=== PATIENT | male | born 1965 | race Caucasian/White ===

== ENCOUNTER 2016-08-05 03:05 | Inpatient (IN) | payer SELFPAY ==
[2016-08-05] VITALS (13 sets, daily range): BP systolic 122–169; BP diastolic 65–100
[~2016-08-05] VITALS: Ht 182.9 cm; Wt 96.6 kg
--- NOTE | ~2016-08-05 | CON ---
[place], [place] REPORT OF CONSULTATION NAME: EUGENIA POWER JR [facility] #: [id number] UNIT #: [id number] ROOM: [facility] DOCTOR: NASRA KOEHLER MD BIRTHDATE: [birth year] DOS: 08/05/2016 CARDIOLOGY CONSULTATION REASON FOR CONSULTATION: Chest pain and elevated cardiac enzymes. HISTORY OF PRESENT ILLNESS: The patient is a 50-year-old gentleman with history of hypertension and dyslipidemia, came to the Emergency Room with chest pain at work. He described this as an aching pain towards the left side of the chest that radiated to his left axillary area as well as it radiated down his left arm. 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 He did have some associated numbness in the left hand, but no shortness of breath or diaphoresis. He did have some nausea. He had a similar episode about a month ago, but did not seek any medical attention since the pain resolved after a couple of hours. Denied any palpitations, dizziness or syncope. No vomiting or diarrhea, no fever or chills, no cough, no hemoptysis. He did take 4 baby aspirins without much relief. His pain gradually eased up in the Emergency Room. He did have a history of hypertension and dyslipidemia and takes medications and does smoke cigarettes. REVIEW OF SYSTEMS: Review of the 10 systems negative except as mentioned above, especially no neurologic, visual or musculoskeletal symptoms. Other than the nausea with chest pain, no GI, hematologic or endocrine symptoms. PAST MEDICAL HISTORY: 1. Hypertension. 2. Overweight. 3. Dyslipidemia. PAST SURGICAL HISTORY: No significant past surgical history. SOCIAL HISTORY: The patient does smoke cigarettes, drinks occasional alcohol. No illicit drug abuse. FAMILY HISTORY: Father at the age of 45 from myocardial infarction. Mother is living and has history of diabetes. ALLERGIES: No known drug allergies. HOME MEDICATIONS: Reviewed. PHYSICAL EXAMINATION: VITAL SIGNS: Blood pressure 146/80, pulse 68, respiratory rate 16. GENERAL: Alert, comfortable, in no acute distress. HEENT: Pupils are round and equal. No jaundice. Tongue was moist and pharynx was clear. NECK: Supple. No distended neck veins, no carotid bruit. Thyroid not palpable. CHEST: Symmetrical, nontender. [place], [place] REPORT OF CONSULTATION [facility] [id number] UNIT #: [id number] ROOM: 501 DOCTOR: ZAKIA MARKS,NASRA BIRTHDATE: [birth year] LUNGS: Clear to auscultation bilaterally. HEART: Regular rhythm. No S3. ABDOMEN: Benign, nontender, bowel sounds normal. No pulsatile mass. EXTREMITIES: Showed no edema. Distal pulses are palpable. SKIN: Warm and dry. No cyanosis, no clubbing. NEUROLOGIC: The patient is alert and oriented. No focal neurologic deficit. MUSCULOSKELETAL: No joint tenderness or swelling. RECTAL: Deferred. GENITOURINARY: Deferred. REVIEW OF DIAGNOSTIC TESTS: EKG shows sinus rhythm, no acute ST-T changes. CBC, chemistry and cardiac enzymes reviewed. The troponin was elevated with gradually rising up. His creatinine was 0.8 and potassium 4.1. Hemoglobin 15.8. IMPRESSION: 1. Non-ST elevation myocardial infarction. 2. Hypertension. 3. Tobacco use. 4. History of dyslipidemia. 5. Overweight. RECOMMENDATIONS: 1. He denies any chest pain. Vital signs stable. EKG showed no significant ischemic changes. 2. Due to his chest pain, NSTEMI and CAD risk factors, I would recommend cardiac catheterization. Risks and complications of cardiac catheterization discussed and all questions answered. The patient and his , who is at the bedside, agreeable to proceed with cardiac catheterization, angioplasty and stent and also bypass surgery if needed. 3. Cardiac catheterization scheduled for Sunday at [facility]. 4. Continue aspirin, beta blockers and statins as well as weight-based Lovenox. 5. His cardiac catheterization indication is 3 with AUC score 8. 6. We would consider 2D echo in [place] since this cannot be done during the weekend at [facility]. 7. Other recommendations based on his cardiac catheterization findings. 8. Follow up with [facility] after discharge. NASRA KOEHLER MD CM:CONSTR:REPORT OF CONSULTATION 0817 08/07/16 1825 interface
--- NOTE | ~2016-08-05 | PR ---
[place], [place] PROGRESS NOTE NAME: EUGENIA POWER JR UNIT #: [id number] ROOM: [facility] DOCTOR: NASRA KOEHLER MD BIRTHDATE: [birth year] DOS: 08/06/2016 REASON FOR VISIT: Non-ST elevation myocardial infarction. SUBJECTIVE: The patient is ambulating in the hallway. Denies any chest pain or shortness of breath. He really wanted to go home. No palpitation, no dizziness. REVIEW OF SYSTEMS: Review of the 8 systems negative except as mentioned above. RHYTHM STRIPS: The patient in sinus rhythm. PHYSICAL EXAMINATION: VITAL SIGNS: Reviewed. GENERAL: The patient is alert, in no acute distress, somewhat agitated. He wanted to go home. HEENT: Pupils are round and equal. NECK: Supple. No distended neck veins. No carotid bruit. CHEST: Nontender. LUNGS: Clear to auscultation bilaterally. HEART: Regular rhythm, no S3. ABDOMEN: Bowel sounds normal. EXTREMITIES: Showed no edema. Distal pulses are palpable. NEUROLOGIC: The patient is alert, oriented. No focal neurologic deficit. RECTAL: Deferred. Medications and labs reviewed as available. IMPRESSION: 1. Non-ST elevation myocardial infarction. 2. Hypertension. 3. Tobacco use. 4. History of dyslipidemia. RECOMMENDATIONS: 1. Continue current medications. 2. He was on aspirin, beta blockers, statins and the Lovenox. 3. He is scheduled for cardiac catheterization tomorrow, Sunday at [facility] and further recommendations based on his cardiac catheterization. 4. The patient is strongly advised against going home today due to risk of recurrent myocardial infarction and subsequent complications. 5. Discussed with his family and all questions are answered. [place], [place] PROGRESS NOTE NAME: EUGENIA POWER JR UNIT #: [id number] ROOM: [facility] DOCTOR: NASRA KOEHLER MD BIRTHDATE: [birth year] NASRA KOEHLER MD CM:PNTRANS [id number] NASRA KOEHLER MD 08/07/16 1032 interface
--- NOTE | ~2016-08-05 | WRIGHTHP ---
[place], [place] PATIENT HISTORY AND PHYSICAL EXAM NAME: EUGENIA POWER JR [facility] #: [id number] UNIT #: [id number] ROOM: [facility] DOCTOR: LIS SILVA DO BIRTHDATE: [birth year] DOS: 08/05/2016 PRIMARY CARE PHYSICIAN: None. The patient was seen and evaluated with the resident on 08/05/2016. Please see the resident's note for further details. ASSESSMENT: 1. Acute non-ST elevation myocardial infarction. 2. Mild leukocytosis. 3. Small right lower lobe infiltrate seen on CTA of the chest. The patient has no signs of pneumonia including shortness of breath, cough, fever or significantly elevated white blood cell count 4. Hypertension. 5. Hyperlipidemia. 6. Diabetes mellitus type 2. 7. Tobacco abuse. 8. Noncompliance with medical management. He has been off medications for at least a year. PLAN: Lovenox has been started. Cardiology has been consulted. A beta reymundo and aspirin will be continued. A statin will be started. Continue to monitor cardiac enzymes. We will hold antibiotics for now because the patient has no other signs of pneumonia. LIS SILVA DO CM:HISPHYS:PATIENT HISTORY AND PHYSICAL EXAMINATION 1352 [id number] LIS SILVA DO 08/05/16 1539 interface
[~2016-08-05 03:05] MED LIST: AMOXICILLIN500 MG PO; DAYPRO600 M1 PO; HYDROCODONE BIT1 T11 PO; LOSARTAN POTASS1 TA6 PO; METFORMIN1000 MG PO; PHENERGAN25 M3 PO; PREDNISONE50 MG PO; VICODIN 500 MG-1 TAB PO
[2016-08-05 04:00] LABS: BASO # 0.1 10*3/uL (0.0-0.1); BASO % 1.2 % (0.0-1.0); EOS # 0.2 10*3/uL (0.0-0.4); EOS % 1.8 % (1.0-4.0); HEMATOCRIT 45.7 % (42.0-52.0); HEMOGLOBIN 15.8 g/dl (14.0-18.0); IG # 0.1 10*3/uL (0.0-0.1); LYMPH # 2.5 10*3/uL (1.3-4.4); LYMPH % 22.3 % (27.0-41.0); MEAN CELL VOLUME 88.4 fl (80.0-94.0); MEAN CORPUSCULAR HGB 30.6 pg (27.0-31.0); MEAN CORPUSCULAR HGB CONC 34.6 g/dl (33.0-37.0); MEAN PLATELET VOLUME 12.8 fl (9.6-12.3); MONO # 0.6 10*3/uL (0.1-1.0); MONO % 4.9 % (3.0-9.0); NEUT # 7.9 10*3/uL (2.3-7.9); NEUT % 69.2 % (47.0-73.0); PLATELET COUNT AUTOMATED 157 10*3/uL (130-400); RED BLOOD COUNT 5.17 10*6/uL (4.50-5.90); WHITE BLOOD COUNT 11.4 10*3/uL (4.8-10.8)
[2016-08-05 04:08] LABS: PROTHROMBIN TIME 10.9 SECONDS (9.0-12.4)
[2016-08-05 04:17] LABS: ALBUMIN 3.5 gm/dl (3.1-4.5); ALKALINE PHOSPHATASE 82 U/L (45-117); BILIRUBIN, TOTAL 0.4 mg/dl (0.2-1.0); BUN 11 mg/dl (7-24); CARBON DIOXIDE 21 mmol/L (21-32); CHLORIDE 108 mmol/L (98-107); EST GLOM FILT AFRICAN AMERICAN > 60 ml/min; GLUCOSE 197 mg/dL (65-99); MAGNESIUM 1.8 mg/dL (1.5-2.1); POTASSIUM 4.1 mmol/L (3.5-5.1); SGOT/AST 28 IU/L (3-35); SGPT/ALT 54 U/L (12-78); SODIUM 144 mmol/L (136-145); TOTAL PROTEIN 6.9 gm/dL (6.4-8.2)
[2016-08-05 04:19] LABS: TROPONIN I 0.103 ng/ml (<0.045)
[2016-08-05 05:19] LABS: BILIRUBIN NEGATIVE (NEGATIVE); BLOOD 3+ (NEGATIVE); CLARITY CLEAR (CLEAR); COLOR YELLOW (YELLOW); GLUCOSE NEGATIVE (NEGATIVE); KETONE NEGATIVE (NEGATIVE); LEUKO ESTERASE NEGATIVE (NEGATIVE); NITRITE NEGATIVE (NEGATIVE); PH 5.5 (5.0-9.0); PROTEIN 2+ (NEGATIVE); UROBILINOGEN 0.2 E.U./dl (0.2-1.0)
[2016-08-05 05:26] LABS: RBC 16-20 rbc/hpf (0-2); WBC 0-2 wbc/hpf (0-5)
[2016-08-05 05:27] LABS: URINE REFLEX COMMENT YES (NO)
[2016-08-05 05:29] LABS: URINE AMPHETAMINES < 1000 (1000ng/ml); URINE BARBITURATES < 200 (200ng/ml); URINE COCAINE < 300 (300ng/ml)
[2016-08-05 08:09] LABS: FREE T4 1.17 ng/dl (0.76-1.46); PHOSPHOROUS 3.1 mg/dL (2.5-4.9)
[2016-08-05 08:14] LABS: THYROID STIM HORMONE (HS) 0.401 uIU/ml (0.358-4.75)
[2016-08-05 08:17] LABS: VITAMIN D, 25-HYDROXY 14.6 ng/mL (30-100)
[2016-08-05 08:18] LABS: FOLIC ACID 14.73 ng/mL (>5.38)
[2016-08-05 08:30] LABS: HEMOGLOBIN A1c 7.2 % (4.8-5.6)
[2016-08-05 12:31] LABS: CKMB 12.3 ng/ml (0.5-3.6); TROPONIN I 2.53 ng/ml (<0.045)
[2016-08-05 18:28] LABS: CKMB 13.5 ng/ml (0.5-3.6)
[2016-08-06] VITALS: BP 147/81
[2016-08-06 00:37] LABS: CKMB 9.8 ng/ml (0.5-3.6)
[2016-08-06 05:54] LABS: BASO # 0.2 10*3/uL (0.0-0.1); BASO % 1.6 % (0.0-1.0); EOS # 0.4 10*3/uL (0.0-0.4); EOS % 3.4 % (1.0-4.0); HEMATOCRIT 49.8 % (42.0-52.0); HEMOGLOBIN 16.7 g/dl (14.0-18.0); LYMPH # 4.5 10*3/uL (1.3-4.4); LYMPH % 42.9 % (27.0-41.0); MEAN CORPUSCULAR HGB 30.9 pg (27.0-31.0); MEAN CORPUSCULAR HGB CONC 33.5 g/dl (33.0-37.0); MEAN PLATELET VOLUME 12.4 fl (9.6-12.3); MONO # 0.8 10*3/uL (0.1-1.0); MONO % 7.5 % (3.0-9.0); NEUT # 4.7 10*3/uL (2.3-7.9); NEUT % 44.2 % (47.0-73.0); NUCLEATED RED BLOOD CELL 0.2 % (0.0-0.0); PLATELET COUNT AUTOMATED 132 10*3/uL (130-400); RED CELL DISTRI WIDTH 13.2 % (0-14.5); WHITE BLOOD COUNT 10.5 10*3/uL (4.8-10.8)
[2016-08-06 05:57] LABS: MEAN CELL VOLUME 92.2 fl (80.0-94.0)
[2016-08-06 06:02] LABS: ALBUMIN 3.5 gm/dl (3.1-4.5); ALKALINE PHOSPHATASE 79 U/L (45-117); BILIRUBIN, TOTAL 0.5 mg/dl (0.2-1.0); BUN 14 mg/dl (7-24); CARBON DIOXIDE 28 mmol/L (21-32); CHLORIDE 106 mmol/L (98-107); EST GLOM FILT AFRICAN AMERICAN > 60 ml/min; GLUCOSE 165 mg/dL (65-99); MAGNESIUM 2.1 mg/dL (1.5-2.1); POTASSIUM 4.1 mmol/L (3.5-5.1); SGOT/AST 30 IU/L (3-35); SGPT/ALT 50 U/L (12-78); SODIUM 142 mmol/L (136-145); TOTAL PROTEIN 6.8 gm/dL (6.4-8.2)
[2016-08-06 06:07] LABS: PROTHROMBIN TIME 10.7 SECONDS (9.0-12.4)
[2016-08-06 08:00] VITALS: BP 122/80
[2016-08-06 12:00] VITALS: BP 118/80
== END 2016-08-06 13:20 | disposition left against medical advice (07) | DRG 282 ==
LOC: ED 03:05 → EDHOLD 04:39 → 5E 04:43
PROVIDERS: Emergency Medicine; Internal Medicine
DX: I21.4 Non-ST elevation (NSTEMI) myocardial infarction (principal); E11.9 Type 2 diabetes mellitus without complications; I10 Essential (primary) hypertension; F17.210 Nicotine dependence, cigarettes, uncomplicated; R00.0 Tachycardia, unspecified; E78.5 Hyperlipidemia, unspecified; F11.90 Opioid use, unspecified, uncomplicated; E66.3 Overweight; Z53.21 Procedure and treatment not carried out due to patient leaving prior to being seen by health care provider; Z71.6 Tobacco abuse counseling; Z91.14 Patient's other noncompliance with medication regimen; Z82.3 Family history of stroke; Z83.3 Family history of diabetes mellitus; Z68.28 Body mass index [BMI] 28.0-28.9, adult

== ENCOUNTER 2016-09-23 04:14 | Emergency (ER) | payer SELFPAY ==
[~2016-09-23] VITALS: Ht 182.8 cm; Wt 104.3 kg
[2016-09-23 04:30] LABS: BASO # 0.2 10*3/uL (0.0-0.1); BASO % 1.3 % (0.0-1.0); EOS # 0.5 10*3/uL (0.0-0.4); EOS % 3.7 % (1.0-4.0); HEMATOCRIT 47.5 % (42.0-52.0); HEMOGLOBIN 16.5 g/dl (14.0-18.0); LYMPH # 4.6 10*3/uL (1.3-4.4); LYMPH % 32.1 % (27.0-41.0); MEAN CORPUSCULAR HGB 30.9 pg (27.0-31.0); MEAN CORPUSCULAR HGB CONC 34.7 g/dl (33.0-37.0); MONO % 6.9 % (3.0-9.0); NEUT % 55.6 % (47.0-73.0); PLATELET COUNT AUTOMATED 159 10*3/uL (130-400); RED BLOOD COUNT 5.34 10*6/uL (4.50-5.90); WHITE BLOOD COUNT 14.5 10*3/uL (4.8-10.8)
[2016-09-23 04:45] LABS: ALBUMIN 3.7 gm/dl (3.1-4.5); ALKALINE PHOSPHATASE 87 U/L (45-117); BUN 12 mg/dl (7-24); CHLORIDE 104 mmol/L (98-107); CREATININE 0.98 mg/dL (0.70-1.30); POTASSIUM 3.9 mmol/L (3.5-5.1); SGOT/AST 35 IU/L (3-35); SGPT/ALT 47 U/L (12-78); SODIUM 139 mmol/L (136-145); TOTAL PROTEIN 7.3 gm/dL (6.4-8.2)
[2016-09-23 04:47] LABS: TROPONIN I 0.258 ng/ml (<0.045)
== END 2016-09-23 10:20 | disposition short-term general hospital (02) ==
LOC: ED 04:14
PROVIDERS: Emergency Medicine
DX: I21.4 Non-ST elevation (NSTEMI) myocardial infarction (principal); I10 Essential (primary) hypertension; E11.9 Type 2 diabetes mellitus without complications; F17.200 Nicotine dependence, unspecified, uncomplicated

== ENCOUNTER → 2017-01-15 | Outpatient (CLI) | payer SELFPAY ==
[2017-01-15 11:26] LABS: CHOLESTEROL 225 mg/dL (<200); HDL CHOLESTEROL 32 mg/dl (40-60)
[2017-01-15 11:28] LABS: TRIGLYCERIDES 417 mg/dl (<150)
== END | disposition home or self-care (01) ==
LOC: LAB 00:51 → US 11:00 → LAB 11:00
PROVIDERS: Internal Medicine Cardiovascular Disease
DX: I25.110 Atherosclerotic heart disease of native coronary artery with unstable angina pectoris (principal); I25.83 Coronary atherosclerosis due to lipid rich plaque; R09.89 Other specified symptoms and signs involving the circulatory and respiratory systems

== ENCOUNTER 2017-05-29 04:13 | Emergency (ER) | payer OTHER ==
[~2017-05-29] VITALS: Ht 182.8 cm; Wt 97.1 kg
[~2017-05-29 04:13] MED LIST changes: -ASPIRIN CHEWABL81 MG PO; -ATORVASTATIN CA80 M1 PO; -IMDUR SA60 M1 PO; -LOSARTAN POTASS50 M1 PO; -METFORMIN HCL500 MG PO; -METOPROLOL SUC100 M1 PO; -NITROSTAT0.3 M1 SL
[2017-05-29 04:15] VITALS: BP 167/88
[2017-05-29] MEDS ORDERED: METFORMIN HCL500 MG PO (04:24)
[2017-05-29] MEDS ORDERED: METOPROLOL SUC100 M1 PO (04:24)
[2017-05-29] MEDS ORDERED: IMDUR SA60 M1 PO (04:25)
[2017-05-29] MEDS ORDERED: LOSARTAN POTASS50 M1 PO (04:25)
[2017-05-29] MEDS ORDERED: ATORVASTATIN CA80 M1 PO (04:26)
[2017-05-29] MEDS ORDERED: ASPIRIN CHEWABL81 MG PO (04:26)
[2017-05-29] MEDS ORDERED: NITROSTAT0.3 M1 SL (04:28)
[2017-05-29 04:30] LABS: HEMATOCRIT 49.5 % (42.0-52.0); HEMOGLOBIN 16.5 g/dl (14.0-18.0); MEAN CELL VOLUME 90.5 fl (80.0-94.0); MEAN CORPUSCULAR HGB 30.2 pg (27.0-31.0); MEAN CORPUSCULAR HGB CONC 33.3 g/dl (33.0-37.0); MEAN PLATELET VOLUME 12.9 fl (9.6-12.3); PLATELET COUNT AUTOMATED 149 10*3/uL (130-400); RED BLOOD COUNT 5.47 10*6/uL (4.50-5.90); RED CELL DISTRI WIDTH 13.2 % (0-14.5); WHITE BLOOD COUNT 11.6 10*3/uL (4.8-10.8)
[2017-05-29 04:40] VITALS: BP 109/71
[2017-05-29 04:40] LABS: ACT PARTIAL THROMBO TIME 25.8 SECONDS (20.8-31.5)
[2017-05-29 04:49] LABS: ATYPICAL LYMPHS 3 % (0-0); BASOPHILS 2 % (0-1); PLATELET SUFFICIENCY NORMAL (NORMAL); TOTAL CELLS COUNTED 100 #CELLS
[2017-05-29 04:53] LABS: ALBUMIN 3.5 gm/dl (3.1-4.5); ALKALINE PHOSPHATASE 83 U/L (45-117); BUN 13 mg/dl (7-24); CHLORIDE 106 mmol/L (98-107); CREATININE 0.89 mg/dL (0.70-1.30); POTASSIUM 4.1 mmol/L (3.5-5.1); SGOT/AST 25 IU/L (3-35); SGPT/ALT 49 U/L (12-78); SODIUM 140 mmol/L (136-145); TOTAL PROTEIN 7.2 gm/dL (6.4-8.2)
[2017-05-29 04:54] LABS: TROPONIN I < 0.015 ng/ml (<0.045)
[2017-05-29 05:12] VITALS: BP 108/69
[2017-05-29 05:43] VITALS: BP 114/72
== END 2017-05-29 06:17 | disposition admitted as inpatient to this hospital (09) ==
LOC: ED 04:13 → EDHOLD 05:09 → ED 05:09 → 5E 05:44 → EDHOLD 05:44
PROVIDERS: Student in an Organized Health Care Education/Training Program
DX: R07.9 Chest pain, unspecified (principal); R06.02 Shortness of breath; R42 Dizziness and giddiness; I10 Essential (primary) hypertension; E11.9 Type 2 diabetes mellitus without complications; I25.2 Old myocardial infarction; F17.200 Nicotine dependence, unspecified, uncomplicated; Z79.899 Other long term (current) drug therapy; Z79.82 Long term (current) use of aspirin

== ENCOUNTER → 2017-05-29 | Outpatient (CLI) | payer OTHER ==
[~2017-05-29] MED LIST changes: +ASPIRIN CHEWABL81 MG PO; +ATORVASTATIN CA80 M1 PO; +IMDUR SA60 M1 PO; +LOSARTAN POTASS50 M1 PO; +METFORMIN HCL500 MG PO; +METOPROLOL SUC100 M1 PO; +NITROSTAT0.3 M1 SL
[2017-05-29 16:48] LABS: THYROID STIM HORMONE (HS) 1.96 uIU/ml (0.358-4.75)
== END | disposition home or self-care (01) ==
LOC: LAB 15:43
PROVIDERS: Registered Nurse Flight
DX: Z00.01 Encounter for general adult medical examination with abnormal findings (principal); E78.5 Hyperlipidemia, unspecified; E11.59 Type 2 diabetes mellitus with other circulatory complications; I10 Essential (primary) hypertension

== ENCOUNTER → 2017-11-27 | Outpatient (CLI) | payer OTHER ==
[~2017-11-27] MED LIST changes: +ASPIRIN CHEWABL81 MG PO; +ATORVASTATIN CA80 M1 PO; +IMDUR SA60 M1 PO; +LOSARTAN POTASS50 M1 PO; +METFORMIN HCL500 MG PO; +METOPROLOL SUC100 M1 PO; +NITROSTAT0.3 M1 SL
[2017-11-27 14:12] LABS: ALBUMIN 3.5 gm/dl (3.1-4.5); BUN 12 mg/dl (7-24); CHLORIDE 106 mmol/L (98-107); POTASSIUM 4.1 mmol/L (3.5-5.1); SODIUM 139 mmol/L (136-145)
[2017-11-27 14:18] LABS: ALKALINE PHOSPHATASE 83 U/L (45-117); CHOLESTEROL 220 mg/dL (<200); CREATININE 0.95 mg/dL (0.70-1.30); HDL CHOLESTEROL 30 mg/dl (40-60); LDL CHOLESTEROL 127 mg/dL (9-159); SGOT/AST 28 IU/L (3-35); SGPT/ALT 49 U/L (12-78); TOTAL PROTEIN 7.4 gm/dL (6.4-8.2); TRIGLYCERIDES 316 mg/dl (<150); VLDL CHOLESTEROL 63 mg/dL (6-40)
[2017-11-27 14:51] LABS: HEMATOCRIT 53.1 % (42.0-52.0); HEMOGLOBIN 17.4 g/dl (14.0-18.0); MEAN CELL VOLUME 92.3 fl (80.0-94.0); MEAN CORPUSCULAR HGB 30.3 pg (27.0-31.0); MEAN CORPUSCULAR HGB CONC 32.8 g/dl (33.0-37.0); MEAN PLATELET VOLUME 13.7 fl (9.6-12.3); RED BLOOD COUNT 5.75 10*6/uL (4.50-5.90); RED CELL DISTRI WIDTH 12.7 % (0-14.5); WHITE BLOOD COUNT 9.1 10*3/uL (4.8-10.8)
== END | disposition home or self-care (01) ==
LOC: LAB 11:59
PROVIDERS: Registered Nurse Flight
DX: I10 Essential (primary) hypertension (principal); E11.59 Type 2 diabetes mellitus with other circulatory complications; E55.9 Vitamin D deficiency, unspecified

== ENCOUNTER → 2018-02-26 | Outpatient (CLI) | payer OTHER ==
[2018-02-26 15:05] LABS: BILIRUBIN NEGATIVE (NEGATIVE); BLOOD 2+ (NEGATIVE); CLARITY CLEAR (CLEAR); COLOR YELLOW (YELLOW); GLUCOSE 3+ (NEGATIVE); KETONE NEGATIVE (NEGATIVE); LEUKO ESTERASE NEGATIVE (NEGATIVE); NITRITE NEGATIVE (NEGATIVE); UROBILINOGEN 0.2 E.U./dl (0.2-1.0)
[2018-02-26 15:15] LABS: WBC 0-2 wbc/hpf (0-5)
[2018-02-26 15:16] LABS: BACTERIA 1+; EPITHELIAL CELLS 0-2
[2018-02-26 15:27] LABS: ALBUMIN 3.4 gm/dl (3.1-4.5); ALKALINE PHOSPHATASE 94 U/L (45-117); BUN 10 mg/dl (7-24); CHLORIDE 104 mmol/L (98-107); CHOLESTEROL 236 mg/dL (<200); CREATININE 1.03 mg/dL (0.70-1.30); HDL CHOLESTEROL 30 mg/dl (40-60); LDL CHOLESTEROL 132 mg/dL (9-159); POTASSIUM 4.8 mmol/L (3.5-5.1); SGOT/AST 29 IU/L (3-35); SGPT/ALT 55 U/L (12-78); SODIUM 138 mmol/L (136-145); TOTAL PROTEIN 7.3 gm/dL (6.4-8.2); TRIGLYCERIDES 369 mg/dl (<150); VLDL CHOLESTEROL 74 mg/dL (6-40)
[2018-02-26 16:12] LABS: HEMATOCRIT 52.2 % (42.0-52.0); HEMOGLOBIN 17.4 g/dl (14.0-18.0); MEAN CELL VOLUME 92.2 fl (80.0-94.0); MEAN CORPUSCULAR HGB 30.7 pg (27.0-31.0); MEAN CORPUSCULAR HGB CONC 33.3 g/dl (33.0-37.0); MEAN PLATELET VOLUME 13.2 fl (9.6-12.3); RED BLOOD COUNT 5.66 10*6/uL (4.50-5.90); WHITE BLOOD COUNT 8.5 10*3/uL (4.8-10.8)
== END | disposition home or self-care (01) ==
LOC: LAB 14:19
PROVIDERS: Registered Nurse Flight
DX: M51.36 Other intervertebral disc degeneration, lumbar region (principal); M47.817 Spondylosis without myelopathy or radiculopathy, lumbosacral region; M48.061 Spinal stenosis, lumbar region without neurogenic claudication; M25.752 Osteophyte, left hip; M25.751 Osteophyte, right hip; I10 Essential (primary) hypertension; E11.59 Type 2 diabetes mellitus with other circulatory complications; E78.5 Hyperlipidemia, unspecified

== ENCOUNTER 2018-09-07 00:34 | Emergency (ER) | payer OTHER ==
[~2018-09-07] VITALS: Wt 99.8 kg
--- NOTE | ~2018-09-07 | EKG ---
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
--- NOTE | ~2018-09-07 | EKG ---
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
--- NOTE | ~2018-09-07 | EKG ---
[place], [place] ELECTROCARDIOGRAM REPORT NAME: EUGENIA POWER JR UNIT #: [id number] ROOM: DOCTOR: EPIPHANY DRAFT REPORT BIRTHDATE: [birth year] [facility] Test Date: 2018-09-07 Test Time: 03:56:58 Pat Name: EUGENIA POWER Department: Room: Gender: M Hearing Specialist: : 1965 Requested By: RAZ IRIZARRY Order Number: [id number] Reading MD: Adam Espinosa Measurements Intervals [place] Rate: 82 P: 48 [place]: 133 QRS: 70 QRSD: 97 T: 55 QT: 401 QTc: 469 Interpretive Statements Sinus rhythm RSR' in V1 or V2, right VCD or RVH Artifact in lead(s) I,II,aVR,aVL,V1 Compared to ECG 05/19/2018 03:36:52 Right ventricular hypertrophy now present RSR' in V1 or V2 now present Electronically Signed On 09-08-2018 9:02:02 PDT by Adam Espinosa CM:EKGRPT:ELECTROCARDIOGRAM REPORT [id number] [facility] RAZ IRIZARRY MD
[~2018-09-07 00:34] MED LIST changes: +NORCO 5-325 TA1 EACH PO; +Orphenadrine C100 MG PO; +THIAMINE HCL100 MG PO
[2018-09-07 00:54] LABS: HEMOGLOBIN 16.5 g/dl (14.0-18.0); MEAN CELL VOLUME 90.6 fl (80.0-94.0); MEAN CORPUSCULAR HGB 31.1 pg (27.0-31.0); MEAN CORPUSCULAR HGB CONC 34.4 g/dl (33.0-37.0); MEAN PLATELET VOLUME 12.9 fl (9.6-12.3); PLATELET COUNT AUTOMATED 151 10*3/uL (130-400); RED CELL DISTRI WIDTH 13.1 % (0-14.5); WHITE BLOOD COUNT 11.5 10*3/uL (4.8-10.8)
[2018-09-07 01:05] LABS: ACT PARTIAL THROMBO TIME 27.3 SECONDS (20.0-32.1)
[2018-09-07 01:13] LABS: ALBUMIN 3.4 gm/dl (3.1-4.5); ALKALINE PHOSPHATASE 82 U/L (45-117); BUN 13 mg/dl (7-24); CHLORIDE 102 mmol/L (98-107); POTASSIUM 3.1 mmol/L (3.5-5.1); SGOT/AST 43 IU/L (3-35); SGPT/ALT 46 U/L (12-78); SODIUM 134 mmol/L (136-145); TOTAL PROTEIN 7.1 gm/dL (6.4-8.2)
[2018-09-07 01:14] LABS: TROPONIN I 0.171 ng/ml (<0.045)
[2018-09-07 01:17] LABS: BASOPHILS 1 % (0-1); PLATELET SUFFICIENCY NORMAL (NORMAL); TOTAL CELLS COUNTED 100 #CELLS
[2018-09-07] MEDS ORDERED: B-1100 M1 PO (04:18)
[2018-09-07] MEDS ORDERED: METFORMIN HYDR500 MG PO (04:18)
== END 2018-09-07 04:21 | disposition left against medical advice (07) ==
LOC: ED 00:34
PROVIDERS: Emergency Medicine Emergency Medical Services
DX: I21.4 Non-ST elevation (NSTEMI) myocardial infarction (principal); E11.9 Type 2 diabetes mellitus without complications; F10.129 Alcohol abuse with intoxication, unspecified; I25.2 Old myocardial infarction; E78.5 Hyperlipidemia, unspecified; I10 Essential (primary) hypertension; I25.10 Atherosclerotic heart disease of native coronary artery without angina pectoris; F17.200 Nicotine dependence, unspecified, uncomplicated; Z98.61 Coronary angioplasty status; Z79.899 Other long term (current) drug therapy; Z79.82 Long term (current) use of aspirin

== ENCOUNTER → 2018-10-29 | Outpatient (CLI) | payer OTHER ==
[~2018-10-29] MED LIST changes: +B-1100 M1 PO; +METFORMIN HYDR500 MG PO
== END | disposition home or self-care (01) ==
LOC: CARD 12:34
DX: I65.23 Occlusion and stenosis of bilateral carotid arteries (principal); I25.118 Atherosclerotic heart disease of native coronary artery with other forms of angina pectoris

== ENCOUNTER 2018-11-04 03:57 | Emergency (ER) | payer OTHER ==
[~2018-11-04] VITALS: Ht 182.8 cm; Wt 90.7 kg
--- NOTE | ~2018-11-04 | EKG ---
[place], [place] ELECTROCARDIOGRAM REPORT NAME: EUGENIA POWER JR UNIT #: [id number] ROOM: DOCTOR: ERYN DRAFT REPORT BIRTHDATE: [birth year] [facility] Test Date: 2018-11-04 Test Time: 04:05:26 Pat Name: EUGENIA POWER Department: Room: Gender: Computational Linguist: : 1965 Requested By: NAZARIO WEBBER Order Number: [id number] Reading MD: Russ Smith MD Measurements Intervals [place] Rate: 94 P: 61 SD: 122 QRS: 45 QRSD: 94 T: 95 QT: 372 QTc: 466 Interpretive Statements Sinus rhythm Nonspecific T abnormalities, lateral leads Compared to ECG 09/07/2018 03:56:58 T-wave abnormality now present Right ventricular hypertrophy no longer present Electronically Signed On 11-04-2018 14:39:02 PDT by Russ Smith MD CM:EKGRPT:ELECTROCARDIOGRAM REPORT [id number] 1439 NAZARIO UMANA DRAFT REPORT NAZARIO WEBBER DO
--- NOTE | ~2018-11-04 | EKG ---
[place], [place] ELECTROCARDIOGRAM REPORT NAME: EUGENIA POWER JR UNIT #: [id number] ROOM: DOCTOR: ERYN DRAFT REPORT BIRTHDATE: [birth year] [facility] Test Date: 2018-11-04 Test Time: 04:44:53 Pat Name: EUGENIA POWER Department: Room: Gender: M Supervisor Metalizing: : 1965 Requested By: NAZARIO WEBBER Order Number: [id number] Reading MD: Russ Smith MD Measurements Intervals [place] Rate: 93 P: 40 [place]: 120 QRS: 35 QRSD: 101 T: 112 QT: 381 QTc: 474 Interpretive Statements Sinus rhythm Repol abnrm suggests ischemia, anterolateral Compared to ECG 09/07/2018 03:56:58 Early repolarization now present Possible ischemia now present Right ventricular hypertrophy no longer present Electronically Signed On 11-04-2018 14:39:12 PDT by Russ Smith MD CM:EKGRPT:ELECTROCARDIOGRAM REPORT 0444 1439 NAZARIO UMANA DRAFT REPORT NAZARIO WEBBER DO
[2018-11-04 04:14] LABS: HEMATOCRIT 51.7 % (42.0-52.0); HEMOGLOBIN 17.3 g/dl (14.0-18.0); MEAN CELL VOLUME 91.8 fl (80.0-94.0); MEAN CORPUSCULAR HGB 30.7 pg (27.0-31.0); MEAN CORPUSCULAR HGB CONC 33.5 g/dl (33.0-37.0); MEAN PLATELET VOLUME 12.7 fl (9.6-12.3); PLATELET COUNT AUTOMATED 156 10*3/uL (130-400); RED BLOOD COUNT 5.63 10*6/uL (4.50-5.90); RED CELL DISTRI WIDTH 13.1 % (0-14.5); WHITE BLOOD COUNT 15.1 10*3/uL (4.8-10.8)
[2018-11-04 04:25] LABS: ACT PARTIAL THROMBO TIME 26.5 SECONDS (20.0-32.1)
[2018-11-04 04:31] LABS: ALBUMIN 3.6 gm/dl (3.1-4.5); ALKALINE PHOSPHATASE 101 U/L (45-117); BUN 17 mg/dl (7-24); CHLORIDE 106 mmol/L (98-107); CREATININE 1.15 mg/dL (0.70-1.30); POTASSIUM 3.9 mmol/L (3.5-5.1); SGOT/AST 34 IU/L (3-35); SGPT/ALT 51 U/L (12-78); SODIUM 137 mmol/L (136-145); TOTAL PROTEIN 7.4 gm/dL (6.4-8.2); TROPONIN I 0.028 ng/ml (<0.045)
[2018-11-04 04:33] LABS: TOTAL CELLS COUNTED 100 #CELLS
[2018-11-04 04:34] LABS: PLATELET SUFFICIENCY NORMAL (NORMAL)
== END 2018-11-04 05:30 | disposition short-term general hospital (02) ==
LOC: ED 03:57
PROVIDERS: Emergency Medicine
DX: I25.10 Atherosclerotic heart disease of native coronary artery without angina pectoris (principal); R79.89 Other specified abnormal findings of blood chemistry; E11.9 Type 2 diabetes mellitus without complications; E78.5 Hyperlipidemia, unspecified; I10 Essential (primary) hypertension; F17.200 Nicotine dependence, unspecified, uncomplicated; Z79.899 Other long term (current) drug therapy; Z79.82 Long term (current) use of aspirin

== ENCOUNTER → 2018-11-27 | Outpatient (CLI) | payer OTHER ==
[2018-11-27 15:56] LABS: HEMATOCRIT 50.4 % (42.0-52.0); HEMOGLOBIN 16.7 g/dl (14.0-18.0); MEAN CELL VOLUME 90.3 fl (80.0-94.0); MEAN CORPUSCULAR HGB 29.9 pg (27.0-31.0); MEAN CORPUSCULAR HGB CONC 33.1 g/dl (33.0-37.0); MEAN PLATELET VOLUME 13.2 fl (9.6-12.3); RED BLOOD COUNT 5.58 10*6/uL (4.50-5.90); RED CELL DISTRI WIDTH 12.6 % (0-14.5); WHITE BLOOD COUNT 11.3 10*3/uL (4.8-10.8)
[2018-11-27 16:24] LABS: ALBUMIN 3.4 gm/dl (3.1-4.5); ALKALINE PHOSPHATASE 98 U/L (45-117); BUN 14 mg/dl (7-24); CHLORIDE 104 mmol/L (98-107); CHOLESTEROL 124 mg/dL (<200); CREATININE 0.93 mg/dL (0.70-1.30); HDL CHOLESTEROL 30 mg/dl (40-60); LDL CHOLESTEROL 33 mg/dL (9-159); SGOT/AST 37 IU/L (3-35); SGPT/ALT 53 U/L (12-78); SODIUM 135 mmol/L (136-145); TOTAL PROTEIN 7.1 gm/dL (6.4-8.2); TRIGLYCERIDES 307 mg/dl (<150); VLDL CHOLESTEROL 61 mg/dL (6-40)
== END | disposition home or self-care (01) ==
LOC: LAB 15:41
PROVIDERS: Registered Nurse Flight
DX: E11.65 Type 2 diabetes mellitus with hyperglycemia (principal); I10 Essential (primary) hypertension; E78.5 Hyperlipidemia, unspecified

== ENCOUNTER → 2020-07-26 | Outpatient (CLI) | payer MEDICARE, MEDICAID ==
[2020-07-26 14:11] LABS: BASO # 0.2 10*3/uL (0.0-0.1); BASO % 1.2 % (0.0-1.0); EOS # 0.3 10*3/uL (0.0-0.4); EOS % 2.5 % (1.0-4.0); HEMATOCRIT 52.1 % (42.0-52.0); LYMPH # 2.8 10*3/uL (1.3-4.4); MEAN CELL VOLUME 88.8 fl (80.0-94.0); MEAN CORPUSCULAR HGB 30.2 pg (27.0-31.0); MEAN PLATELET VOLUME 13.3 fl (9.6-12.3); MONO # 0.7 10*3/uL (0.1-1.0); MONO % 5.4 % (3.0-9.0); NEUT # 8.9 10*3/uL (2.3-7.9); NEUT % 68.5 % (47.0-73.0); PLATELET COUNT AUTOMATED 136 10*3/uL (130-400); RED BLOOD COUNT 5.87 10*6/uL (4.50-5.90); WHITE BLOOD COUNT 12.9 10*3/uL (4.8-10.8)
[2020-07-26 14:50] LABS: ALBUMIN 3.1 gm/dl (3.1-4.5); BUN 10 mg/dl (7-24); CHLORIDE 106 mmol/L (98-107); CHOLESTEROL 226 mg/dL (<200); CREATININE 0.89 mg/dL (0.70-1.30); POTASSIUM 4.1 mmol/L (3.5-5.1); SGOT/AST 17 IU/L (3-35); SGPT/ALT 31 U/L (12-78); SODIUM 135 mmol/L (136-145); TOTAL PROTEIN 7.1 gm/dL (6.4-8.2); TRIGLYCERIDES 286 mg/dl (<150)
[2020-07-26 14:53] LABS: ALKALINE PHOSPHATASE 102 U/L (45-117); LDL CHOLESTEROL 138 mg/dL (9-159)
[2020-07-27 11:07] LABS: CREATININE,URINE 177.6 mg/dL (Not Estab.)
== END | disposition home or self-care (01) ==
LOC: LAB 13:28
PROVIDERS: ATTEND Nurse Practitioner Family
DX: Z12.5 Encounter for screening for malignant neoplasm of prostate (principal); E11.65 Type 2 diabetes mellitus with hyperglycemia; I10 Essential (primary) hypertension; E78.5 Hyperlipidemia, unspecified; E55.9 Vitamin D deficiency, unspecified

== ENCOUNTER 2023-02-02 19:58 | Emergency (ER) | payer MEDICARE, OTHER ==
[~2023-02-02] VITALS: Ht 182.8 cm; Wt 81.6 kg
[2023-02-02] MEDS ORDERED: TRESIBA FL100 UNIT/1 SQ (20:19)
[2023-02-02 20:51] LABS: BASO # 0.1 10*3/uL (0.0-0.1); BASO % 0.3 % (0.0-1.0); EOS # 0.1 10*3/uL (0.0-0.4); EOS % 0.7 % (1.0-4.0); HEMATOCRIT 46.3 % (42.0-52.0); LYMPH # 0.9 10*3/uL (1.3-4.4); LYMPH % 5.1 % (27.0-41.0); MEAN CORPUSCULAR HGB CONC 32.6 g/dl (33.0-37.0); MEAN PLATELET VOLUME 13.3 fl (9.6-12.3); MONO # 1.3 10*3/uL (0.1-1.0); MONO % 7.5 % (3.0-9.0); NEUT % 85.6 % (47.0-73.0); PLATELET COUNT AUTOMATED 130 10*3/uL (130-400); RED BLOOD COUNT 5.03 10*6/uL (4.50-5.90); RED CELL DISTRI WIDTH 12.5 % (0-14.5); WHITE BLOOD COUNT 17.6 10*3/uL (4.8-10.8)
[2023-02-02 21:20] LABS: ALKALINE PHOSPHATASE 117 U/L (46-116); BUN 28 mg/dl (9-23); CHLORIDE 96 mmol/L (98-107); SGPT/ALT 15 U/L (5-49); TOTAL PROTEIN 6.4 gm/dL (6.0-8.0)
== END 2023-02-03 02:01 | disposition short-term general hospital (02) ==
LOC: ED 19:58
PROVIDERS: Nurse Practitioner Family
DX: N49.3 Fournier gangrene (principal); R79.82 Elevated C-reactive protein (CRP); R70.0 Elevated erythrocyte sedimentation rate; E44.0 Moderate protein-calorie malnutrition; Z68.1 Body mass index [BMI] 19.9 or less, adult; R65.20 Severe sepsis without septic shock; E11.65 Type 2 diabetes mellitus with hyperglycemia; I10 Essential (primary) hypertension; Z95.5 Presence of coronary angioplasty implant and graft; Z98.890 Other specified postprocedural states; F17.200 Nicotine dependence, unspecified, uncomplicated

== ENCOUNTER → 2023-02-16 | Outpatient (CLI) | payer OTHER ==
[~2023-02-16] MED LIST changes: +TRESIBA FL100 UNIT/1 SQ
== END | disposition home or self-care (01) ==
LOC: WOUNDCARE 03:14
PROVIDERS: ATTEND Nurse Practitioner Family
DX: M72.6 Necrotizing fasciitis (principal); S31.829A Unspecified open wound of left buttock, initial encounter; S31.30XA Unspecified open wound of scrotum and testes, initial encounter; E11.9 Type 2 diabetes mellitus without complications; I10 Essential (primary) hypertension; I25.10 Atherosclerotic heart disease of native coronary artery without angina pectoris; E78.5 Hyperlipidemia, unspecified; F17.210 Nicotine dependence, cigarettes, uncomplicated; Z79.84 Long term (current) use of oral hypoglycemic drugs; Z79.4 Long term (current) use of insulin; Z79.82 Long term (current) use of aspirin; X58.XXXA Exposure to other specified factors, initial encounter; Y93.89 Activity, other specified; Y92.89 Other specified places as the place of occurrence of the external cause; Y99.8 Other external cause status

== ENCOUNTER 2023-02-19 15:00 | Emergency (ER) | payer OTHER, MEDICAID ==
[~2023-02-19] VITALS: Ht 182.8 cm; Wt 84.8 kg
== END 2023-02-19 15:40 | disposition left against medical advice (07) ==
LOC: ED 15:00
DX: T81.41XA Infection following a procedure, superficial incisional surgical site, initial encounter (principal); Z95.5 Presence of coronary angioplasty implant and graft; Z98.890 Other specified postprocedural states; F17.200 Nicotine dependence, unspecified, uncomplicated